=== PATIENT | female | born 1980 | race Hispanic/Latino ===

== ENCOUNTER 2021-07-09 17:38 | Emergency (ER) | payer SELFPAY ==
--- NOTE | 2021-07-09 18:33 | RAD REPORT ---
EXAM DESCRIPTION: Jael Levine (2 Views)07/09/2021 6:26 pm CLINICAL HISTORY: Cough COMPARISON: None FINDINGS: The lungs appear clear of acute infiltrate. The heart is normal size IMPRESSION: No acute abnormalities displayed
--- NOTE | 2021-07-09 20:36 | EDPHYS ---
Physician Documentation [facility] Name: Clau Calhoun Age: 40 yrs Sex: Female : 1980 Arrival Date: 07/09/2021 Time: 17:39 Bed Waiting Private MD: ED Physician Efrem Chun HPI: 07/09 23:34 This 40 yrs old Female presents to ER via Wheelchair with complaints of r/o kb covid. 23:34 The patient or guardian reports cough, that is intermittent, described as mild, with kb productive sputum, that is green. Onset: The symptoms/episode began/occurred 1 week(s) ago. Severity of symptoms: At their worst the symptoms were mild, in the emergency department the symptoms are unchanged. Modifying factors: The symptoms are alleviated by nothing, the symptoms are aggravated by nothing. Associated signs and symptoms: The patient has no apparent associated signs or symptoms. The patient has not experienced similar symptoms in the past. The patient has not recently seen a physician. Pt reports cough, congestion and malaise for a week. States she wanted to make sure she didn't have covid. Historical: - Allergies: 17:47 Flagyl; aa5 - PMHx: 17:47 Diabetes mellitus; aa5 - Immunization history:: Client reports having NOT received the Covid vaccine. - Social history:: Smoking status: Patient denies any tobacco usage or history of. ROS: 23:33 Abdomen/GI: Negative for abdominal pain, nausea, vomiting, diarrhea, and constipation. kb 23:33 Constitutional: Positive for fatigue, malaise. 23:33 ENT: Positive for sinus congestion. 23:33 Respiratory: Positive for cough, Negative for dyspnea on exertion, hemoptysis, orthopnea, pleurisy, shortness of breath, sputum production, wheezing. 23:33 All other systems are negative. Exam: 23:33 Constitutional: This is a well developed, well nourished patient who is awake, alert, kb and in no acute distress. Head/Face: Normocephalic, atraumatic. ENT: Moist Mucous membranes Cardiovascular: Regular rate and rhythm with a normal S1 and S2. No gallops, murmurs, or rubs. No pulse deficits. Respiratory: Respirations even and unlabored. No increased work of breathing, no retractions or nasal flaring. Skin: Warm, dry with normal turgor. Normal color. MS/ Extremity: Pulses equal, no cyanosis. Neurovascular intact. Full, normal range of motion. Neuro: Awake and alert, GCS 15, oriented to person, place, time, and situation. Moves all extremities. Normal gait. Psych: Awake, alert, with orientation to person, place and time. Behavior, mood, and affect are within normal limits. Vital Signs: 17:45 BP 142 / 106; Pulse 105; Resp 20 S; Temp 97.4(TE); Pulse Ox 98% on R/A; Weight 69.85 kg aa5 (R); Height 4 ft. 11 in. (149.86 cm) (R); 17:45 Body Mass Index 31.10 (69.85 kg, 149.86 cm) aa5 MDM: 17:49 Patient medically screened. kb 23:32 Data reviewed: vital signs, nurses notes. Data interpreted: Pulse oximetry: on room air kb is 98 %. Interpretation: normal. Counseling: I had a detailed discussion with the patient and/or guardian regarding: the historical points, exam findings, and any diagnostic results supporting the discharge/admit diagnosis, lab results, radiology results, the need for outpatient follow up, a family practitioner, to return to the emergency department if symptoms worsen or persist or if there are any questions or concerns that arise at home. 07/09 17:47 Order name: Flu; Complete Time: 19:41 kb 07/09 17:47 Order name: Chest Pa And Lat (2 Views) XRAY; Complete Time: 18:39 kb 07/09 20:09 Order name: SARS-COV-2 RT PCR; Complete Time: 20:11 EDMS Administered Medications: No medications were administered Disposition: 07/10 08:08 Co-signature as Attending Physician, Efrem Chun MD I agree with the assessment and kdr plan of care. Disposition Summary: 07/09/21 20:34 Discharge Ordered Location: Home Condition: Stable kb Diagnosis - Acute upper respiratory infection, unspecified kb Followup: kb - With: Emergency Department - When: As needed - Reason: Worsening of condition Followup: kb - With: Private Physician - When: 2 - 3 days - Reason: Recheck today's complaints, Continuance of care, Re-evaluation by your physician Discharge Instructions: - Discharge Summary Sheet kb - Upper Respiratory Infection, Adult, [id number] kb - Viral Respiratory Infection, [id number] kb Forms: - Medication Reconciliation Form kb - Thank You Letter kb - Antibiotic Education kb - Prescription Opioid Use kb - Work release form em Signatures: Dispatcher [employer] EDMS Camila Aquino, SUBSCRIPTION CREW LEADER-C Efrem Vasquez MD MD kdr Calderon, Audri, RN RN aa5 Corrections: (The following items were deleted from the chart) 07/09 17:48 17:47 Allergies: No Known Allergies; aa5 aa5 19:17 17:47 CORONAVIRUS+MR.LAB.BRZ ordered. EDNV EDMS
--- NOTE | 2021-07-09 20:36 | ER ---
Nurse's Notes [facility] Name: Clau Calhoun Age: 40 yrs Sex: Female : 1980 Arrival Date: 07/09/2021 Time: 17:39 Bed Waiting Private MD: Diagnosis: Acute upper respiratory infection, unspecified Presentation: 07/09 17:45 Chief complaint: Patient states: "I've been sick for like a week now with a cough and aa5 congestion". Coronavirus screen: congestion, cough unrelated to allergies. Ebola Screen: Patient negative for fever greater than or equal to 101.5 degrees Fahrenheit, and additional compatible Ebola Virus Disease symptoms. Initial Sepsis Screen: Does the patient meet any 2 criteria? HR > 90 bpm. Does the patient have a suspected source of infection? No. Patient's initial sepsis screen is negative. Risk Assessment: Do you want to hurt yourself or someone else? Patient reports no desire to harm self or others. Onset of symptoms was June 2021. 17:45 Method Of Arrival: Wheelchair aa5 17:45 Acuity: DEANA 4 aa5 Historical: - Allergies: 17:47 Flagyl; aa5 - PMHx: 17:47 Diabetes mellitus; aa5 - Immunization history:: Client reports having NOT received the Covid vaccine. - Social history:: Smoking status: Patient denies any tobacco usage or history of. Screenin:41 Abuse screen: Denies threats or abuse. Nutritional screening: No deficits noted. em Tuberculosis screening: No symptoms or risk factors identified. Fall Risk None identified. Assessment: 20:41 General: Appears in no apparent distress. comfortable, Behavior is calm, cooperative, em appropriate for age. Neuro: Level of Consciousness is awake, alert, obeys commands. Cardiovascular: Capillary refill < 3 seconds Patient's skin is warm and dry. Respiratory: Airway is patent Respiratory effort is even, unlabored, Respiratory pattern is regular, symmetrical. Derm: Skin is intact, is healthy with good turgor, Skin is pink, warm \\T\\ dry. Vital Signs: 17:45 BP 142 / 106; Pulse 105; Resp 20 S; Temp 97.4(TE); Pulse Ox 98% on R/A; Weight 69.85 kg aa5 (R); Height 4 ft. 11 in. (149.86 cm) (R); 17:45 Body Mass Index 31.10 (69.85 kg, 149.86 cm) aa5 ED Course: 17:39 Patient arrived in ED. as 17:45 Arm band placed on. aa5 17:46 Triage completed. aa5 17:46 [facility] Aquino [facility]C [facility] kb 17:46 Efrem Chun MD is Attending Physician. kb 18:00 COVID swab sent to lab. Flu and/or RSV swab sent to lab. aa5 18:26 Chest Pa And Lat (2 Views) XRAY In Process Unspecified. EDMS 20:41 Kiel Jarvis, RN is Primary Nurse. em 20:41 Patient has correct armband on for positive identification. em 20:41 No provider procedures requiring assistance completed. Patient did not have IV access em during this emergency room visit. Administered Medications: No medications were administered Outcome: 20:34 Discharge ordered by MD. kb 20:41 Discharged to home ambulatory. em 20:41 Condition: stable 20:41 Discharge instructions given to patient, Instructed on discharge instructions, follow up and referral plans. Demonstrated understanding of instructions, follow-up care. 20:42 Patient left the ED. em Signatures: Dispatcher [employer] EDWV Camila Aquino FNP-C REHABILITATION COUNSELLOR-Mauriceb Kiel Jarvis, RN RN em Lakshmi Stevens Audri, RN RN aa5 Corrections: (The following items were deleted from the chart) 17:47 17:45 Pulse 105bpm; Resp 20bpm; Spontaneous; Pulse Ox 98% RA; Temp 97.4F Temporal; aa5 69.85 kg Reported; Height 4 ft. 11 in. Reported; BMI: 31.1; aa5 17:48 17:47 Allergies: No Known Allergies; aa5 aa5
[2021-07-09 21:47] VITALS: BP 142/106; TEMP 97.4; O2SAT 98
== END 2021-07-09 20:42 | disposition home or self-care (01) ==
LOC: ER 17:38
DX: J06.9 Acute upper respiratory infection, unspecified (principal); Z20.822 Contact with and (suspected) exposure to COVID-19; Z88.8 Allergy status to other drugs, medicaments and biological substances
CPT/HCPCS: 71046; 87804; 99283; U0003